=== PATIENT | female | born 1990 | race Caucasian/White ===

== ENCOUNTER 2022-07-28 16:21 | Inpatient (IN) | payer OTHER ==
[~2022-07-28 16:21] MED LIST: Bupivacaine 0.25% HCL 30 ML VIAL ONE; Bupivacaine PF 0.5% 30 ML VIAL ONE
[2022-07-28 17:31] LABS: Fetal Membranes Rupture RUPTURE DETECTED (No Rupture)
[2022-07-28 18:18] VITALS: BMI 36.6
[2022-07-28] MEDS ORDERED: Ondansetron PF 4 MG/2 ML Vial IVP PRN (18:49)
[2022-07-28] MEDS ORDERED: Lidocaine 1% (PF) 30 ML VIAL SC PRN (18:49)
[2022-07-28] MEDS ORDERED: Promethazine HCl 25 MG/ML VIAL IM PRN (18:49)
[2022-07-28] MEDS ORDERED: hydrALAZINE 20 MG/ML VIAL SLOW IVP PRN (18:49)
[2022-07-28] MEDS ORDERED: Acetaminophen 500 MG TAB PO PRN (18:50)
[2022-07-28] MEDS ORDERED: NS w/ Oxytocin 30 units 500 ML ONE (18:54)
[2022-07-28] MEDS ORDERED: NS w/ Oxytocin 30 units 500 ML IV SCH ×2 (19:00)
[2022-07-28 19:04] LABS: Hemoglobin 11.6 g/dL (12.0-15.5); Mean Corpuscular HGB CONC 33.3 g/dL (32.0-36.0); Mean Corpuscular Hemoglobin 29.1 pg (27.0-33.0); Mean Corpuscular Volume 87.2 fl (81.6-98.3); Mean Platelet Volume 9.4 fl (7.4-10.4); Platelet Count 340 10x3/uL (150-450); RBC Distribution Width 13.8 % (11.5-14.5); Red Blood Cell (RBC) Count 3.99 10x6/uL (3.90-5.03); White Blood Cell (WBC) Count 12.3 10x3/uL (3.5-10.5)
[2022-07-28 19:29] LABS: HBSAg Index 0.17 S/CO (0-0.99); Hep B Surf Ag Non-Reactive S/CO (NonReactive); Syphilis Antibody Nonreactive (Nonreactive); Syphilis Antibody Index 0.04 S/CO (<1.00 Non-Reactive)
[2022-07-28] MEDS ORDERED: Fentanyl 2 mcg/Bup 0.1% Cadd 100 ML ONE (20:10)
[2022-07-28] MEDS: Lactated Ringer's 1,000 ML IV SCH (20:39)
[2022-07-29] MEDS ORDERED: Penicillin G Potassium 5 MILL.UNITS VIAL ONE (01:00)
[2022-07-29] MEDS ORDERED: Penicillin G Potassium 5 MILL.UNITS in Sodium Chloride 0.9% 100 ML IVPB SCH (01:00)
[2022-07-29] MEDS: Lactated Ringer's 1,000 ML IV SCH ×2 (01:08→18:33)
[2022-07-29] MEDS: Penicillin G 2.5 MILL.units 2.5 MILL.UNITS in Premix Bag 1 BAG IVPB SCH ×3 (05:10→18:33)
[2022-07-29] MEDS ORDERED: Fentanyl 2 mcg/Bup 0.1% Cadd 100 ML ONE (06:20)
[2022-07-29] MEDS ORDERED: Misoprostol 200 MCG TAB ONE (11:56)
[2022-07-29] MEDS ORDERED: Methylergonovine 0.2 MG/ML VIAL ONE (11:57)
[2022-07-29] MEDS: Acetaminophen 500 MG TAB PO PRN ×2 (16:16→22:25)
[2022-07-29] MEDS ORDERED: Preparation H Ointment 28 GM TUBE PR PRN (17:12)
[2022-07-29] MEDS ORDERED: Boostrix 0.5 ML (Tdap) VIAL (>/=7 yrs of age) IM ONE (17:12)
[2022-07-29] MEDS ORDERED: Misoprostol 200 MCG TAB VAG PRN (17:12)
[2022-07-29] MEDS ORDERED: Benzocaine-Menthol 82.5 ML CAN TOP PRN (17:12)
[2022-07-29] MEDS ORDERED: Lanolin Ointment 7 GM TUBE TOP PRN (17:12)
[2022-07-29] MEDS ORDERED: Bisacodyl 10 MG SUPP PR PRN (17:12)
[2022-07-29] MEDS ORDERED: Methylergonovine 0.2 MG/ML VIAL IM PRN (17:12)
[2022-07-29] MEDS: Ferrous Sulfate 325 MG TAB PO SCH (18:31)
[2022-07-29] MEDS: Ibuprofen 800 MG TAB PO SCH (21:17)
[2022-07-29] MEDS: Docusate 100 MG CAP PO SCH (21:17)
[2022-07-30 04:07] LABS: #Eosinphils 0.2 10x3/uL (0.0-0.5); #Monocytes 0.9 10x3/uL (0.0-1.1); #Neutrophils 8.4 10x3/uL (1.5-8.4); %Basophils 0.3 % (0.0-2.0); %Eosinophils 1.3 % (0.0-6.0); %Lymphocytes 26.5 % (18.0-47.0); %Monocytes 6.5 % (0.0-10.0); %Neutrophils 64.9 % (40.0-75.0); Hemoglobin 9.9 g/dL (12.0-15.5); Mean Corpuscular HGB CONC 32.7 g/dL (32.0-36.0); Mean Corpuscular Hemoglobin 28.6 pg (27.0-33.0); Mean Corpuscular Volume 87.6 fl (81.6-98.3); Mean Platelet Volume 9.7 fl (7.4-10.4); Platelet Count 326 10x3/uL (150-450); RBC Distribution Width 13.8 % (11.5-14.5); Red Blood Cell (RBC) Count 3.46 10x6/uL (3.90-5.03)
[2022-07-30] MEDS: Acetaminophen 500 MG TAB PO PRN ×2 (04:33→16:56)
[2022-07-30] MEDS: Ibuprofen 800 MG TAB PO SCH ×4 (06:03→21:26)
[2022-07-30] MEDS: Ferrous Sulfate 325 MG TAB PO SCH ×2 (08:21→16:51)
[2022-07-30] MEDS: Docusate 100 MG CAP PO SCH ×2 (08:21→21:26)
[2022-07-30] MEDS ORDERED: Milk Of Magnesia 30 ML UDCUP PO SCH (09:00)
[2022-07-30] MEDS ORDERED: Prenatal Vitamin 1 TAB PO SCH (09:00)
[2022-07-31] MEDS: Ibuprofen 800 MG TAB PO SCH (05:44)
[2022-07-31 11:53] VITALS: BP 129/65; TEMP 98.2
== END 2022-07-31 11:40 | disposition home or self-care (01) | DRG 807 ==
LOC: CSHLD/OP 16:21 → CSHLD 18:56 → CSHPP 07-29 18:10
PROVIDERS: ADMIT Student in an Organized Health Care Education/Training Program; ATTEND Student in an Organized Health Care Education/Training Program
PROC: 10E0XZZ Delivery of Products of Conception, External Approach (ICD-10-PCS; principal; 2022-07-29)
PROC: 0KQM0ZZ Repair Perineum Muscle, Open Approach (ICD-10-PCS; 2022-07-29)
DX: O42.02 Full-term premature rupture of membranes, onset of labor within 24 hours of rupture (principal); Z37.0 Single live birth; Z3A.37 37 weeks gestation of pregnancy; O24.420 Gestational diabetes mellitus in childbirth, diet controlled; E66.9 Obesity, unspecified; O99.214 Obesity complicating childbirth; F41.9 Anxiety disorder, unspecified; J45.909 Unspecified asthma, uncomplicated; O99.344 Other mental disorders complicating childbirth; O99.52 Diseases of the respiratory system complicating childbirth; Z90.49 Acquired absence of other specified parts of digestive tract; Z88.6 Allergy status to analgesic agent; Z88.8 Allergy status to other drugs, medicaments and biological substances; O70.1 Second degree perineal laceration during delivery
CPT/HCPCS: 51702; 84112; 85025; 85027; 86780; 86850; 86900; 86901; 87340; 99285; J2405; J2540; J2590; J3490; J7120; S0020